=== PATIENT | female | born 1990 | race Caucasian/White ===

== ENCOUNTER 2017-02-26 13:52 | Inpatient (IN) ==
[2017-02-26] MEDS ORDERED: Naloxone 0.4 MG/ML INJ IVP PRN (14:23)
[2017-02-26] MEDS ORDERED: Ondansetron 4 MG/2 ML VIAL IVP PRN ×2 (14:23→20:53)
[2017-02-26] MEDS ORDERED: *HR* Nalbuphine 20 MG/ML AMPUL IVP PRN (14:23)
[2017-02-26] MEDS ORDERED: Famotidine 20 MG/2 ML VIAL IVP PRN (14:23)
[2017-02-26] MEDS ORDERED: Ringers Solution, Lactated 1,000 ML IVC SCH ×2 (14:30→21:00)
--- NOTE | 2017-02-26 14:51 | OB/GYN History & Physical ---
Date of Encounter: 02/26/17 Time of Encounter: 14:48 Assessment and Plan (1) 38 weeks gestation of Current visit: Yes Status: Acute (2) SROM (spontaneous rupture of membranes) Current visit: Yes Status: Acute SROM at 10pm last night, + pooling, negative nitrazine, +ferning. Admit to labor and delivery Start augmentation GBS negative Anticipate History of Present Illness Chief complaint: Leaking fluid HPI: Ms. Hand is a 27 year old female at 38+3 weeks gestation. Presents to triage with complaints of leaking fluid since 10 PM last night. Patient states at 10 PM last night she had a large gush of fluid and has continued to have a small leaking of fluid ever since. Reports good movement, denies vaginal bleeding. Uncomplicated course under the care of Dr. Pickens. Labs: B+, rubella and varicella immune, GBS negative Past Med Surg Social Fam HX - Past Medical History Medical history: no medical history Psychiatric history: no psych history - Social History Smoking Status: Never smoker Smokeless Tobacco Status: No Alcohol use: none Drug use: none Obstetrical History - Pregnancies : 2 Para: 1 Term: 1 : 0 Ab's: 0 Livin Medications and Allergies Cyclobenzaprine [Flexeril] 10 mg PO TID #15 tablet 05/19/15 [Rx] Ibuprofen [Motrin] 600 mg PO TID PRN #30 tab 05/19/15 [Rx] Nitrofurantoin (BID) [Macrobid] 100 mg PO BID #6 capsule 07/24/16 [Rx] 3 Allergy/AdvReac Type Severity Reaction Status Date / Time No Known Allergies Allergy Verified 05/19/15 17:36 Exam - Constitutional Constitutional: well developed, well nourished, no acute distress - Neck Neck exam: full ROM - Lungs Respiratory exam: CTAB - Cardiovascular Cardiovascular exam: RRR - Abdomen Abdomen: Present: bowel sounds normal, gravid, non tender - Extremities Deep Tendon Reflex Grade: 2+ Normal - Vagina Vagina: Present: normal moisture - Cervix Dilation: 4 Effacement: 80 Station: -2 - Uterus Uterus exam: Present: normal size, normal contour Results All other labs normal. - VTE Reasons for not Prescribing Prophylaxis: Treatment not Indicated - Low risk for VTE
[2017-02-26 15:08] LABS: Basophils # 0.1 K/mcL (0.0-0.2); Basophils % 0.4 %; Eosinophils # 0.2 K/mcL (0.0-0.6); Eosinophils % 1.2 %; Hematocrit 40.2 % (35.3-44.9); Hemoglobin 13.1 g/dL (11.5-15.4); Immature Granulocytes % 3.1 % (0-4); Lymphocytes # 2.2 K/mcL (0.6-4.6); Lymphocytes % 14.4 %; Mean Corpuscular HGB Conc 32.6 g/dL (31.6-35.5); Mean Corpuscular Volume 88.9 fL (83.0-100.0); Mean Platelet Volume 11.6 fL (9.4-12.4); Monocytes # 0.8 K/mcL (0.0-1.3); Monocytes % 5.2 %; Neutrophils # 11.6 K/mcL (1.6-8.9); Platelet Count 180 K/mcL (140-400); Red Blood Count 4.52 M/mcL (3.82-4.97); Segmented Neutrophils % 75.7 %
--- NOTE | 2017-02-26 15:39 | Anesthesia Evaluation PreOp ---
Date of Encounter: 02/26/17 Time of Encounter: 15:34 - Past History Planned Operation: vaginal del, Spont ROM 38wk. Cardiac History: Denies any Significant Hx Pulmonary History: Denies Any Significant HX COOK STATION History: Denies Any Significant HX Other Medical History: Denies Any Significant HX Anesthesia History: No Prior Anesthetic Complications, Past Anesthesia Alcohol Use: none Drug use: none Medications and Allergies Cyclobenzaprine [Flexeril] 10 mg PO TID #15 tablet 05/19/15 [Rx] Ibuprofen [Motrin] 600 mg PO TID PRN #30 tab 05/19/15 [Rx] Nitrofurantoin (BID) [Macrobid] 100 mg PO BID #6 capsule 07/24/16 [Rx] 3 Allergy/AdvReac Type Severity Reaction Status Date / Time No Known Allergies Allergy Verified 05/19/15 17:36 Anesthesia Results - Labs 02/26/17 14:24 Anesthesia Exam - HEENT Pupil (Motor): Pupils equal Mallampati: III Teeth: Normal Oral Opening: Greater than 3 - COOK STATION LOC: Oriented COOK STATION Motor: Normal RUE, Normal LUE, Normal RLE, Normal LLE, Normal Face COOK STATION Sensory: Normal: RUE, LUE, RLE, LLE, Face - Cardiac Rhythm: Regular Murmur: None - Pulmonary Breath Sounds: bilateral Clear Respiratory Effort: Symmetrical Anesthesia Assess/Plan ASA Score: 2 Modified Exline Scale for Level of Consciousness: Cooperative, oriented, and tranquil Anesthetic Plan: General, Regional Monitoring Plan: Standard Monitors
[2017-02-26] MEDS ORDERED: Epidural Premix (fent/bupiv) 110 ML EP ONE (16:12)
[2017-02-26 16:17] LABS: Amphetamine Screen,Urine Negative ng/mL (Cutoff=1000); Barbiturate Screen,Urine Negative ng/mL (Cutoff=200); Benzodiazepines Screen,Urine Negative ng/mL (Cutoff=200); Cannabinoid Screen,Urine Negative ng/mL (Cutoff = 50); Cocaine Screen,Urine Negative ng/mL (Cutoff= 300); Opiate Screen,Urine Negative ng/mL (Cutoff=300); Phencyclidine Screen,Urine Negative ng/mL (Cutoff=25)
[2017-02-26] MEDS ORDERED: Oxytocin 20 units/ LR 1000 mL 20 UNIT/1,000 ML BAG IVC SCH ×2 (17:00→21:00)
[2017-02-26] MEDS ORDERED: EPHEDrine 50 MG/ML VIAL ONE (18:09)
--- NOTE | 2017-02-26 18:22 | Anesthesia Procedures ---
Date of Encounter: 02/26/17 Time of Encounter: 17:52 Procedures: Anesthesia - Epidural/Spinal Patient ID/Chart reviewed: Yes Patient examined: Yes OB Eval: Gestational age: 38 OB Eval: : 2 OB Eval: Hx Para: 1 OB Eval: Dilated at (cm): 6 OB Eval: Contractions: Non-stressed pattern Consent Obtained: Yes Site Prep: Aseptic Technique, Sterile prep and drape, 0.5% Chlorhexidine/Alcohol Patient position: upright Local Anesthetic: Lidocaine 1% Amount of Local Anesthetic used: 2 Touhy Needle Gauge: 18 Touhy Needle Depth (cm): 8 Catheter Depth at Skin (cm): 13 Test Dose (1.5% Lido + Epi): Volume given (mls): 3 Test Dose Result: Negative Loading Dose: Other: 12ml from solution Loading Dose Administered: Thru Catheter Infusion Med: 0.125% Bupivacaine w/ 2 mcg/ml Fentanyl Infusion Rate (mls/hr): [address]: Tegaderm, Tape Interspace Used: L3-L4 Loss of Resistance (ABBI): Yes (saline) Blood: No CSF: No Paresthesia: No Procedure: vss though procedure, brief hypotensive episode treated with 10mg ephredrine, IV bolus, lateral turns and 100% FIo2. OB team at BS, FHR responded to maternal BP inc. will cont to follow. infusion on hold for 15-30min.
[2017-02-26] MEDS ORDERED: Metoclopramide 10 MG/2 ML VIAL IVP ONE (19:43)
[2017-02-26] MEDS ORDERED: Ringers Solution, Lactated 1,000 ML ONE (19:47)
[2017-02-26] MEDS ORDERED: Lidocaine/EPI 1:200k 2% PF 20 ML VIAL ONE (19:58)
[2017-02-26] MEDS ORDERED: *HR* Oxytocin 10 UNIT/ML VIAL IM ONE (19:59)
[2017-02-26] MEDS ORDERED: *HR* Morphine Sulfate/PF 5 MG/10 ML AMPUL ONE (20:02)
[2017-02-26] MEDS ORDERED: Ondansetron 4 MG/2 ML VIAL ONE (20:27)
[2017-02-26] MEDS ORDERED: Simethicone 80 MG TAB.CHEW PO PRN (20:53)
[2017-02-26] MEDS ORDERED: Metoclopramide 10 MG/2 ML VIAL IVP PRN (20:53)
[2017-02-26] MEDS ORDERED: Sennosides 8.6 MG TABLET PO PRN (20:53)
--- NOTE | 2017-02-26 20:53 | OB/GYN Procedure Note ---
Section - Date of procedure: 02/26/17 Preop diagnosis: category 2 FHT tracing Post-op diagnosis: same Procedure: primary low transverse Surgeon: Catrachita Reynaga Estimated blood loss (cc): 200 Deskidding Machine Operator: Asa Hernández Anesthesia Type: Epidural section complications: none Disposition: L&D Recovery Room Specimens: Placenta - (s) A Delivery Date: 02/26/17 Infant Delivery Time: 20:06 Presentation: vertex Gender: Male Gram Weight: 3.075 kg at 1 minute: 7 at 5 minutes: 9 Shoulder Dystocia: not encountered Placenta: uterine exploration, complete extraction - Narrative Narrative: The patient was brought to the operating suite in stable condition with epidural anesthesia on board and an indwelling catheter in place in the bladder. The patient was placed supine on the operating room table and rolled to her left side. The abdomen was prepped and draped in standard fashion with Betadine for section. After testing with forceps to assure an adequate anesthetic level, the surgery was commenced. With the scalpel, a Pfannenstiel skin incision was made. Dissection was carried down sharply through the subcutaneous tissues and fascia in a transverse plane with the scalpel, electrocautery and curved Roque scissors. The fascia was sharply freed up superiorly and inferiorly from the underlying rectus muscles, which were bluntly and sharply divided. The peritoneum was entered bluntly and extended laterally. A retractor and bladder blade were placed. A bladder flap was created by incising transversely through the peritoneum and vesicouterine fold and then bluntly dissecting the bladder distally. With the scalpel, a low transverse hysterotomy was commenced. The serosa and myometrium were scored with the scalpel. The uterine cavity was actually entered bluntly and then extended laterally with the dish machine operator's fingers. An intrauterine hand was placed and the head of the infant was brought up out of the pelvis into the uterine incision. With fundal pressure, he was delivered without difficulty. The nasopharynx and oropharynx were suctioned. The cord was doubly clamped and transected. The infant was then handed off to the nursery personnel. Intravenous Pitocin was administered. The placenta was manually removed. The uterine cavity was then curetted with a dry sponge and freed of the remaining membranes. The uterine incision was then closed in 1 layers of 0 Vicryl suture. Hemostasis was noted. The pelvis and gutters were cleared of all blood and clots. The uterine incision was reinspected to assure hemostasis. The uterus, tubes and ovaries were inspected and were normal. The fascia was closed with 0-vicryl, the sub cutaneous layer was closed with 3-0 vicryl, the skin was closed with 4-0 vicryl. The patient was taken to the recovery room in stable condition.
[2017-02-26] MEDS ORDERED: *HR* HYDROmorphone (PF) 1 MG/ML SYRINGE ONE ×2 (21:48→22:28)
[2017-02-26] MEDS ORDERED: Ketorolac 30 MG/ML VIAL ONE (22:28)
[2017-02-26] MEDS ORDERED: *HR* HYDROmorphone (PF) 1 MG/ML SYRINGE IVP PRN (22:34)
[2017-02-26] MEDS ORDERED: *HR* Morphine 2 MG/ML SYRINGE IVP PRN (22:34)
--- NOTE | 2017-02-26 22:39 | Anesthesia Evaluation Post Op ---
Date of Encounter: 02/26/17 Time of Encounter: 22:34 - Vital Signs Vital Signs: vss - Lungs Lungs: Clear Ascult./Percussion - Airway Airway: Non-obstructed - Cardiovascular Baseline Rhythm - Mental Status Mental Status: Asleep with brisk response to light stimulation - Pain Pain Scale used: Junior (Faces) (being treated. mild) - Nausea Vomiting Nausea Vomiting: Not Present - Hydration Hydration: Ice chips, Jordan catheter - Discharge PostOp Status: Transfer Patient to floor
[2017-02-27] MEDS ORDERED: Ketorolac 30 MG/ML VIAL IVP PRN (02:07)
[2017-02-27] MEDS: *HR* OxyCODONE/APAP 5/325 TABLET PO PRN ×3 (04:53→15:31)
[2017-02-27] MEDS: Ibuprofen 600 MG TABLET PO PRN ×3 (04:54→21:40)
[2017-02-27 07:03] LABS: Basophils % 0.1 %; Eosinophils % 0.1 %; Hematocrit 32.9 % (35.3-44.9); Hemoglobin 10.6 g/dL (11.5-15.4); Immature Granulocytes % 1.6 % (0-4); Lymphocytes # 1.3 K/mcL (0.6-4.6); Lymphocytes % 5.8 %; Mean Corpuscular HGB Conc 32.2 g/dL (31.6-35.5); Mean Corpuscular Hemoglobin 29.1 pg (28.0-33.3); Mean Corpuscular Volume 90.4 fL (83.0-100.0); Mean Platelet Volume 11.5 fL (9.4-12.4); Monocytes # 1.1 K/mcL (0.0-1.3); Monocytes % 4.8 %; Neutrophils # 19.2 K/mcL (1.6-8.9); Platelet Count 155 K/mcL (140-400); Red Blood Count 3.64 M/mcL (3.82-4.97); Red Cell Distribution Width 14.1 % (11.5-14.5); Segmented Neutrophils % 87.6 %
[2017-02-27] MEDS: Prenatal Vit/FA 1 EACH TABLET PO SCH (09:21)
--- NOTE | 2017-02-27 10:40 | OB/GYN Progress Note ---
Date of Encounter: 02/27/17 Time of Encounter: 10:25 - Assessment and Plan (1) S/P section Current Visit: Yes Status: Acute Patient is meeting milestones. Pain is controlled. - Continue current pain meds. (2) Constipation Current Visit: Yes Status: Acute No bowel movement or passing gas yet. Normal bowel sounds x 4 quadrants. - Senna. - Encourage ambulation. - Consider milk of magnesia if no BM by tomorrow. Qualifiers: Qualified Code(s): K59.00 - Constipation, unspecified (3) 38 weeks gestation of Current Visit: Yes Status: Acute Subjective - Subjective Principal diagnosis: S/P Interval history: Patient says that she is doing well and is in good mood. She is currently bottle feeding the baby. She recently had her chandler catheter taken out, but has not been able to void yet. She was producing urine on the catheter. She has not been able to have a bowel movement yet or produce gas. She is unsure how much vaginal bleeding she has but according to the nurse it has been light. She rates her abdominal pain as a 7/10. She says that today is the first time she has been able to get out of bed and walk. She denies any headaches, dizziness, vision changes, nausea, vomiting, chest pain, shortness of breath, fever, or chills. Patient reports: appetite normal, ambulating normally : doing well, bottle feeding Objective - Vital Signs Latest vital signs: Vital Signs Temp Pulse Pulse Resp BP Pulse Ox 02/27/17 09:57 98.2 F 113 14 91/43 02/27/17 05:05 98.8 F 126 14 105/52 96 02/27/17 05:00 126 02/27/17 02:10 98.5 F 109 14 112/76 97 02/27/17 01:10 98.9 F 117 14 101/65 97 02/27/17 00:10 98.2 F 118 14 110/69 96 02/26/17 23:40 98.0 F 112 112 16 113/55 95 02/26/17 23:10 98.9 F 118 16 111/68 96 Intake and Output 02/26/17 02/27/17 02/27/17 23:59 07:59 15:59 Intake Total 600 / 600 Output Total 700 / 700 Balance -100 / -100 Intake: Oral 600 / 600 Output: Catheter 700 / 700 - Exam Lungs: bilateral: normal Chest: Normal S1, Normal S2 Extremities: Present: normal, edema (+1 pitting edema bilaterally in lower extremities. ). Absent: tenderness Abdomen: Present: soft, tenderness (Diffuse tenderness with light palpation.) Incision: Present: dry, dressed Uterus: Present: firm - Labs Labs: Laboratory Results - last 24 hr 02/26/17 02/26/17 02/27/17 14:24 15:18 06:30 WBC 15.3 H 21.9 H RBC 4.52 3.64 L Hgb 13.1 10.6 L D Hct 40.2 32.9 L MCV 88.9 90.4 MCH 29.0 29.1 MCHC 32.6 32.2 RDW 14.0 14.1 Plt Count 180 155 MPV 11.6 11.5 Immature Gran % 3.1 1.6 Seg Neutrophils % 75.7 87.6 Lymphocytes % 14.4 5.8 Monocytes % 5.2 4.8 Eosinophils % 1.2 0.1 Basophils % 0.4 0.1 Neutrophils # 11.6 H 19.2 H Lymphocytes # 2.2 1.3 Monocytes # 0.8 1.1 Eosinophils # 0.2 0.0 Basophils # 0.1 0.0 Urine Opiates Screen Negative Ur Barbiturates Screen Negative Ur Phencyclidine Scrn Negative Ur Amphetamines Screen Negative U Benzodiazepines Scrn Negative Urine Cocaine Screen Negative U Marijuana (THC) Screen Negative
[2017-02-28] MEDS: *HR* OxyCODONE/APAP 5/325 TABLET PO PRN ×2 (02:31→08:23)
[2017-02-28 08:09] VITALS: BP 114/69
--- NOTE | 2017-02-28 08:15 | Discharge Summary ---
Date of Encounter: 02/28/17 Time of Encounter: 08:08 - Discharge Diagnosis (1) S/P section Priority: Primary Status: Acute Comments: Continue routine postop/ care discharge home today follow up with Dr. Reynaga in 2 weeks - Discharge Medications Prescriptions: OxyCODONE/APAP 5/325 [Percocet 5/325 MG] 1 each PO Q4HR PRN #30 tablet PRN Reason: Moderate pain 4-6 Ibuprofen [Motrin] 600 mg PO Q6HR PRN #60 tablet PRN Reason: Cramping Docusate [Colace] 100 mg PO BID #60 capsule Home Medications: Docusate [Colace] 100 mg PO BID #60 capsule 02/28/17 [Rx] Ibuprofen [Motrin] 600 mg PO Q6HR PRN #60 tablet 02/28/17 [Rx] OxyCODONE/APAP 5/325 [Percocet 5/325 MG] 1 each PO Q4HR PRN #30 tablet 02/28/17 [Rx] Vit/FA 1 each PO DAILY tablet 02/28/17 [Rx] Allergies/Adverse Reactions: 3 Allergy/AdvReac Type Severity Reaction Status Date / Time No Known Allergies Allergy Verified 05/19/15 17:36 Data Procedures and tests throughout hospitalization: Laboratory Tests 02/26/17 02/26/17 02/27/17 14:24 15:18 06:30 WBC 15.3 H 21.9 H RBC 4.52 3.64 L Hgb 13.1 10.6 L D Hct 40.2 32.9 L MCV 88.9 90.4 MCH 29.0 29.1 MCHC 32.6 32.2 RDW 14.0 14.1 Plt Count 180 155 MPV 11.6 11.5 Immature Gran % 3.1 1.6 Seg Neutrophils % 75.7 87.6 Lymphocytes % 14.4 5.8 Monocytes % 5.2 4.8 Eosinophils % 1.2 0.1 Basophils % 0.4 0.1 Neutrophils # 11.6 H 19.2 H Lymphocytes # 2.2 1.3 Monocytes # 0.8 1.1 Eosinophils # 0.2 0.0 Basophils # 0.1 0.0 Urine Opiates Screen Negative Ur Barbiturates Screen Negative Ur Phencyclidine Scrn Negative Ur Amphetamines Screen Negative U Benzodiazepines Scrn Negative Urine Cocaine Screen Negative U Marijuana (THC) Screen Negative Date of admission: 02/26/17 13:52 Primary care physician: Didi Sequeira, Discharging clinician: Elisha Solorzano Anticipated date of discharge: 02/28/17 - Patient Status Disposition: Home, Self-Care Condition: Good Functional capacity at discharge: independent ambulation - Discharge Instructions Follow Up With: Didi Sequeira, JOSIAS [Primary Care Provider] - Catrachita Reynaga MD [Partnered Physician] - - Diet and Activity Activity: increase activity as tolerated Diet: regular diet Hospital Course Procedures: [facility] report reviewed by JUDY Concepcion Reason for admission: rupture of membranes Delivery: section Episiotomy: none Laceration: none Other procedures: none complications: none Discharge diagnosis: IUP at term delivered baby: male (bottle feeding) Time Attestation: Total time spent providing and/or coordinating discharge services: Time Spent: Less than 30 minutes - VTE Reasons for not Prescribing Prophylaxis: Treatment not Indicated - Low risk for VTE Documentation of Mechanical Device: Intermittent pneumatic compression device Exam - Constitutional Vitals: Temp Pulse Resp BP Pulse Ox 97.4 F L 106 14 107/67 97 02/27/17 19:50 02/27/17 19:50 02/27/17 19:50 02/27/17 19:50 02/27/17 19:50 General appearance IM: A&O X 3, pleasant, answers questions appropriately - Respiratory Respiratory exam: Present: CTAB - Cardiovascular Cardiovascular exam IM: Present: RRR, +S1, +S2 - GI/Abdominal GI/Abdominal exam IM: normal bowel sounds - Uterine Tone: Firm Uterus Position: 2 Fingers Below Umbilicus, Midline - Extremities Exam Extremities exam IM: Present: full ROM, normal capillary refill, normal inspection - Neurological Exam Neurological exam: alert, oriented X3, reflexes normal
[2017-02-28] MEDS: Prenatal Vit/FA 1 EACH TABLET PO SCH (08:23)
== END 2017-02-28 16:15 | disposition home or self-care (01) | DRG 540 ==
LOC: 1NENULAB → OBSVTOIN 13:52 → 1NENUOBS 23:30
PROVIDERS: ADMIT Student in an Organized Health Care Education/Training Program; ATTEND Student in an Organized Health Care Education/Training Program